=== PATIENT | male | born 1965 | race Caucasian/White ===

== ENCOUNTER → 2018-10-24 09:33 | Outpatient (CLI) | payer OTHER, SELFPAY ==
--- NOTE | 2018-10-24 09:39 | RAD_ITS ---
STUDY: X-RAY - RIGHT WRIST REASON FOR EXAM: Male, 52 years old. Wrist pain TECHNIQUE: 3 view(s) of the wrist were obtained. COMPARISON: None. FINDINGS: Normal visualized distal radius and ulna. There is degenerative arthrosis of the radiocarpal articulation. Normal distal radioulnar articulation. There is a diminutive appearance to the proximal pole of the scaphoid bone with widening of the scapholunate interval suggestive of a chronic scaphoid fracture and avascular crosses the proximal pole. Normal carpal articulations. Normal carpometacarpal articulation of the thumb. Normal second through fifth carpometacarpal articulations. Normal visualized metacarpal bones. The soft tissue structures are unremarkable. 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 Electronically Signed: Edgard White MD at 9:59 EDT Tel , Service support ,
== END ==
PROVIDERS: Family Provider Family Medicine; PCP Family Medicine; Referring Provider Family Medicine; Visit Provider Family Medicine
DX: M25.531 Pain in right wrist (principal)
CPT/HCPCS: 73110

== ENCOUNTER → 2019-01-01 08:04 | Outpatient (CLI) | payer OTHER, SELFPAY ==
--- NOTE | 2019-01-01 08:42 | MRI_ITS ---
STUDY: MRI RIGHT HIP REASON FOR EXAM: Male, 53 years old. Right hip mass. TECHNIQUE: Standardized fat and water weighted pulse sequences were obtained in all 3 orthogonal planes. Following the intravenous administration of 20 cc Dotarem, T1 weighted axial and coronal sequences were performed. COMPARISON: None. FINDINGS: Marrow signal is normal. There is no fracture, bone contusion, or osteonecrosis. Normal hip joint without joint effusion or articular joint space narrowing. Normal acetabulum. Normal labrum. Normal femoral head. Normal femoral neck and intratrochanteric region. Normal gluteus minimus, medius and iliopsoas tendons and distal insertions. There is a partial tear of the right semimembranosus tendon at the ischial tuberosity insertion. There is no trochanteric, iliopsoas or iliopectineal bursitis. There is an 8.8 x 5.8 x 5.7 cm bilobed fluid collection associated with the tensor fascial mary and extending into the lateral subcutaneous tissues. The collection is slightly heterogeneous on T1 and T2-weighted imaging. There is no obvious enhancement following the administration of contrast. MRI/Lower Ext Joint Only W/WO Cont IMPRESSION: 1. Complex fluid collection lateral to the right tensor fascia mary. If there is a history of subacute trauma, degloving injury should be suspected. Organized hematoma is less likely. Cyst or cystic neoplasm is unlikely. 2. Partial tear of the right semimembranosus tendon. Electronically Signed: Ting Gallagher MD at 18:43 EDT Tel , Service support ,
== END ==
PROVIDERS: Family Provider Family Medicine; PCP Family Medicine; Referring Provider Orthopaedic Surgery; Visit Provider Orthopaedic Surgery
DX: M25.551 Pain in right hip (principal); D48.1 Neoplasm of uncertain behavior of connective and other soft tissue
CPT/HCPCS: 73723; A9575

== ENCOUNTER 2019-05-04 08:30 | Outpatient (RCR) | payer OTHER, SELFPAY ==
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
== END 2019-05-04 19:00 | disposition home or self-care (01) ==
LOC: OT 08:30
PROVIDERS: PCP Family Medicine; Referring Provider Orthopaedic Surgery; Visit Provider Orthopaedic Surgery
DX: M12.531 Traumatic arthropathy, right wrist (principal); M25.531 Pain in right wrist
CPT/HCPCS: 97035; 97110; 97140; 97166; 97530

== ENCOUNTER → 2019-07-23 15:07 | Outpatient (CLI) | payer OTHER, SELFPAY ==
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
== END ==
PROVIDERS: PCP Family Medicine; Referring Provider Family Medicine; Visit Provider Family Medicine
DX: M79.672 Pain in left foot (principal)
CPT/HCPCS: 73630

== ENCOUNTER 2021-04-23 13:53 | Outpatient (CLI) | payer OTHER, SELFPAY ==
--- NOTE | 2021-04-23 14:11 | VDLE_ITS ---
Reason For Study: Pain in rt leg RIGHT GSV is normal. CFV is compressible, spontaneous, phasic, competent and demonstrates normal augmentation. FV is compressible, spontaneous, phasic, competent and demonstrates normal augmentation. POP V is compressible, spontaneous, phasic, competent and demonstrates normal augmentation. T/P Trunk is compressible. PTV is compressible. RT PerV is compressible. Acute deep vein thrombosis is noted in the right GastrocV and SoleusV. Procedure This is a venous duplex using B-mode, color flow and spectral Doppler. Exam performed in department. A preliminary report was called and/or faxed to RN in office. VL/Venous Duplex US, Unilateral Interpretation Summary Acute deep venous thrombosis right gastrocnemius and soleus veins. Patent compressible right great saphenous vein Ordering Physician: Torres Recio Referring Physician: Yoel Chavez MD Performed By: Layla Montenegro RVT
== END 2021-04-23 23:59 | disposition short-term general hospital (02) ==
PROVIDERS: PCP Family Medicine; Referring Provider Orthopaedic Surgery; Visit Provider Orthopaedic Surgery
DX: I82.461 Acute embolism and thrombosis of right calf muscular vein (principal)
CPT/HCPCS: 93971

== ENCOUNTER 2021-04-24 18:09 | Emergency (ER) | payer OTHER, SELFPAY ==
[2021-04-24 18:10] VITALS: BP 173/95; PULSE 88; RESP 16; TEMP 36.2; O2SAT 95; BMI 39.3
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
[2021-04-24 19:06] VITALS: BP 189/90; PULSE 86; RESP 15; O2SAT 98
== END 2021-04-24 19:07 | disposition home or self-care (01) ==
LOC: ED 18:45
PROVIDERS: Emergency Provider Emergency Medicine; PCP Family Medicine; Visit Provider Emergency Medicine
DX: I82.401 Acute embolism and thrombosis of unspecified deep veins of right lower extremity (principal); M79.661 Pain in right lower leg; Z79.01 Long term (current) use of anticoagulants; Z79.899 Other long term (current) drug therapy
CPT/HCPCS: 99282

== ENCOUNTER 2021-05-19 11:50 | Outpatient (CLI) | payer OTHER, SELFPAY ==
--- NOTE | 2021-05-19 12:25 | CT_ITS ---
STUDY: CT PELVIS WITH CONTRAST REASON FOR EXAM: Male, 55 years old. RIGHT GROIN PAIN RADIATION DOSAGE (If Supplied By Facility): CTDIvol = ( 28.21 ) mGy, DLP = ( 1391.79 ) mGycm TECHNIQUE: Transaxial imaging of the pelvis was performed without oral contrast. IV 100mL Isovue-300 was administered intravenously. Individualized dose optimization techniques were used for this CT. COMPARISON: None. FINDINGS: Normal urinary bladder. Normal visualized small intestine. Normal visualized colon. There is no pelvic fluid. There is no pelvic lymphadenopathy or mass lesion. Normal visualized pelvic arteries. Normal abdominal wall. There is a 1.3 cm sclerotic focus in the right posterior aspect of the L3 vertebrae. There is evidence of a grade 1 spondylolisthesis of L4 on L5 with disc space narrowing and spondylolysis of the pars interarticularis of the L4 vertebrae. CT/Pelvis WITH IV Contrast IMPRESSION: 1.3 sinus collateral focus in the right posterior aspect of the L3 vertebrae. Grade 1 anterolisthesis of L4 on L5 with spondylolysis of the pars interarticularis of the L4 vertebrae with disc space narrowing and spondylosis. Electronically Signed: Davis Leonardo MD at 12:48 EST ,
== END 2021-05-19 23:59 | disposition home or self-care (01) ==
PROVIDERS: PCP Family Medicine; Visit Provider Family Medicine
DX: K40.90 Unilateral inguinal hernia, without obstruction or gangrene, not specified as recurrent (principal)
CPT/HCPCS: 72193; Q9967

== ENCOUNTER 2021-05-20 10:54 | Emergency (ER) | payer OTHER, SELFPAY ==
[2021-05-20 10:55] VITALS: BP 170/104; PULSE 60; RESP 24; TEMP 36.8; O2SAT 100; BMI 40.0
--- NOTE | 2021-05-20 10:57 | ED.RN ---
PT HAD TO BE ASSISTED OUT OF THE FAMILY VEHICLE. PT WANTED TO BE LIFTED OUT OF THE VEHICLE ONTO A BED. PT RELUCTANTLY GOT INTO A WHEELCHAIR. ONCE INSIDE TRIAGE PT STATES IF I GET ANOTHER PAIN I AM GOING TO THROW MYSELF ON THE FLOOR ON PURPOSE
--- NOTE | 2021-05-20 11:16 | US_ITS ---
STUDY: SCROTUM ULTRASOUND REASON FOR EXAM: Male, 55 years old. Right testicular pain. History of recent inferior vena cava filter placement. TECHNIQUE: Ultrasound evaluation of the scrotum was performed with color Doppler and static brown-scale imaging. COMPARISON: None. FINDINGS: RIGHT TESTICLE INTRATESTICULAR: There is a normal size of the right testicle. The right testicle measures 5 cm x 3.1 cm x 2.2 cm. There is a homogenous echotexture. There is normal arterial and normal venous vascularity. There is no demonstrated right testicular mass or cyst. EXTRATESTICULAR: The epididymis is normal in size. The epididymis head measures 0.7 cm x 1 cm x 1.4 cm. There is normal vascularity of the epididymis. There is no demonstrated epididymal cystic structure. There is a small hydrocele. There is no demonstrated varicocele. There is no demonstrated extratesticular mass or cyst. LEFT TESTICLE INTRATESTICULAR: There is a normal size of the left testicle. The left testicle measures 4.7 cm x 3.1 cm x 2.2 cm. There is a homogenous echotexture. There is normal arterial and normal venous vascularity. There is no demonstrated left testicular mass or cyst. EXTRATESTICULAR: The epididymis is normal in size. The epididymis head measures 1.3 cm x 1.4 cm x 1.2 cm. There is normal vascularity of the epididymis. There is no demonstrated epididymal cystic structure. There is a small hydrocele. There is no demonstrated varicocele. There is no demonstrated extratesticular mass or cyst. US/Testicular with Arterial Flow IMPRESSION: Small bilateral hydroceles. Electronically Signed: Davis Leonardo MD at 13:31 EST ,
--- NOTE | 2021-05-20 11:17 | CT_ITS ---
STUDY: CT ABDOMEN AND PELVIS WITH CONTRAST REASON FOR EXAM: Male, 55 years old. Right testicular and abdominal pain. RADIATION DOSAGE (If Supplied By Facility): CTDIvol = ( 20.55 ) mGy, DLP = ( 1830.41 ) mGycm TECHNIQUE: Transaxial images were obtained from the dome of the diaphragm to the symphysis pubis without oral contrast. IV 100mL Isovue-300 was administered. Sagittal and coronal images were reconstructed. Individualized dose optimization techniques were used for this CT. COMPARISON: Comparison is made with prior CT scan of the pelvis dated 05/19/2011 FINDINGS: Tiny calcified granuloma in the left lower lobe. The visualized portions of the heart are within normal limits. There is decreased attenuation of the liver consistent with steatosis. Low-level density is seen along the dependent portion of the gallbladder lumen suggestive of either sludge or tiny gallstones. Normal spleen. Normal pancreas. Normal bilateral adrenal glands. Normal right kidney. Normal left kidney. Normal visualized stomach. Normal small intestine. Normal colon. The appendix is visualized and appears normal. Normal abdominal aorta. There is an IVC filter in place. Normal retroperitoneum. Normal urinary bladder. There is a left-sided inguinal hernia containing adipose tissue. Stable 1.3 cm sclerotic focus in the posterior aspect of the L3 vertebrae on the right side. Grade 1 anterior listhesis of L4 on L5 with spondylolysis of the pars interarticularis of the L5 vertebrae. CT/Abdomen/Pelvis W IV Cont ONLY IMPRESSION: Diffuse fatty infiltration of the liver. Findings suggestive of tiny gallstones versus sludge in the gallbladder lumen. Small left inguinal hernia containing fat. Electronically Signed: Davis Leonardo MD at 13:30 EST ,
[2021-05-20 12:05] LABS: Absolute Lymphocyte Count 1.43 X10^3/uL (0.83-4.51); Absolute Neutrophil Count 5.7 X10^3/uL (2.0-7.7); Basophil# 0.05 X10^3/uL; Basophil% 0.6 % (0-1); Eosinophil# 0.09 X10^3/uL; Eosinophils% 1.1 % (0-5); Hematocrit 47.2 % (40-54); Lymphocyte # 1.43 X10^3/ul (0.83-4.51); Lymphocyte % 17.7 % (19-41); Mean Corp Hgb Conc 33.9 g/dL (32-36); Mean Corpuscular Hgb 29.1 pg (27.0-32.0); Mean Platelet Vol. 10.8 fl (6.2-12.0); Monocyte# 0.75 X10^3/uL; Monocyte% 9.3 % (0-10); NRBC Flagged by Analyzer 0 % (0-5); Neutrophil # 5.73 X10^3/uL (2.7-7.7); Neutrophil % 71.2 % (47-70); Platelet Count 202 K/mm3 (150-450); RBC Distribution Width SD 40.2 fl (35.1-43.9); Red Blood Count 5.49 M/mm3 (4.6-6.2); White Blood Count 8.1 K/mm3 (4.4-11.0)
[2021-05-20 12:19] LABS: ALB/GLOB Ratio 0.9 RATIO (0.9-2.4); AST(SGOT) 20 U/L (15-37); Alanine Aminotransfer ALT/SGPT 41 U/L (16-61); Albumin, Serum 3.6 g/dL (3.2-5.0); Alkaline Phosphatase 87 U/L (45-117); Anion Gap 5 (5-15); BUN 15 mg/dL (7-18); BUN/Creat Ratio 22.1 RATIO (10-20); Chloride 104 mmol/L (98-107); Creatinine, Serum 0.68 mg/dL (0.70-1.30); EST Glomerular Filtration Rate 129 mL/min (>60); Est Glom Filt Rate - Afr Amer 156 mL/min (>60); Estimated Creatinine Clearance 136.31 ml/min; Globulin 4.1 g/dL (2.2-4.2); Glucose 105 mg/dL (74-106); Potassium 3.9 mmol/L (3.5-5.1); Protein, Total 7.7 g/dL (6.4-8.2); Sodium Level 138 mmol/L (136-145)
--- NOTE | 2021-05-20 12:50 | EDS_ITS ---
HPI History of Present Illness Chief Complaint: Abd Pain Informant: patient and spouse/S.O. Narrative Narrative: 55-year-old male presenting to the emergency department with chief complaint of right testicular pain. Patient states that he has been working towards a knee replacement on the right leg. He recently injured the right knee and subsequently developed a DVT and was placed on Eliquis. He then underwent an IVC filter placement by vascular surgery in [place]. He states that he has been having a pain in the suprapubic region extending down into the right testicle. Now he feels it is most like it in the right testicle that radiates into the right thigh. He also notes that he is on doxycycline for possibly infected bursa and taking hydrocodone. He notes no significant dysuria. No fevers. He underwent a pelvis CT with IV contrast yesterday that was essentially negative. He was supposed to have a pelvic ultrasound done today through his vascular surgeon but because of the pain came to emergency. Had blood work done on Tuesday which he brought with him. [facility] Medical History DVT (deep venous thrombosis) Non-smoker Seizures Home Medications apixaban [Eliquis DVT-PE Treat 30D Start] 5 mg PO BID #74 tab 04/24/21 [Rx Last Taken Unknown] hydrocodone-acetaminophen 1 tab PO Q4H PRN 04/24/21 [History Last Taken Unknown] diazepam 5 mg PO Q8 PRN #15 tab 05/20/21 [Rx Last Taken Unknown] doxycycline hyclate 100 mg PO BID 05/20/21 [History Last Taken Unknown] oxycodone 10 mg PO Q8H PRN 5 Days #15 tab 05/20/21 [Rx Last Taken Unknown] Allergy/AdvReac Type Severity Reaction Status Date / Time No Known Allergies Allergy Verified 04/24/21 18:09 Surgical History History of arthroscopy of right knee History of carpal tunnel release History of rotator cuff surgery Social History Smoking Status: Never smoker ROS ROS ED Constitutional Constitutional ED: Denies chills, fever(s) or weight loss Eyes Eyes: Denies change in vision or diplopia ENT ENT ED: Denies ear pain, rhinorrhea or sore throat Cardiovascular Cardiovascular: Denies chest pain, orthopnea, palpitations or racing heartbeat Respiratory/Chest Respiratory/Chest: Denies cough, dyspnea or orthopnea Gastrointestinal Gastrointestinal: Reports abdominal pain; Denies diarrhea, nausea or vomiting Genitourinary Genitourinary ED: Reports other Details: Right testicular pain ; Denies dysuria, hematuria or urinary frequency Musculoskeletal Musculoskeletal: Reports other Details: Right leg knee pain ; Denies arthralgias or myalgias Integumentary Reports other; Denies abscess or rash Neurologic Neurologic: Denies headache(s) or weakness Psychiatric Psychiatric: Denies anxiety, depression, suicidal ideation or suicidal thoughts Endocrine Endocrinology: Denies polydipsia, polyphagia or polyuria Allergic/Immunologic Allergic/Immunologic ED: Denies mouth swelling, tongue swelling or urticaria EXAM Physical Exam Const Vital Signs: 05/20/21 10:55 Temperature 98.3 F Temperature Source Temporal Pulse Rate 60 Respiratory Rate 24 H Blood Pressure 170/104 H Blood Pressure Mean 126 Pulse Ox 100 Oxygen Delivery Method Room Air Positive well nourished, well developed and obese General Appearance ED: well developed Nutritional Appearance: obese HEENT Reports normocephalic, head/scalp atraumatic, TM's clear and moist mucous membranes Negative for trauma Tympanic Membrane ED: Yes TM's clear Eyes PERRL and EOMs intact bilaterally Neck no lymphadenopathy, supple and no JVD Resp normal respiratory effort and clear to auscultation bilaterally Cardio regular rate, regular rhythm and no murmurs GI normal to inspection, nondistended, normoactive bowel sounds and non-tender Palpation: soft Narrative: Bilaterally the testicles appear normal and nontender. There is no drainage from the meatus. No rash. No perineal swelling or erythema. Back/Spine no CVA tenderness and normal ROM Extremity Extremity Narrative: Right leg is mildly swollen when compared to the left. The IVC insertion site appears without complication. General Extremety ED: Negative for edema General Extremity: Negative for edema Neuro oriented x3 and CN's II-XII intact bilaterally Sensorium / Orientation: alert Motor Exam: strength 5/5 throughout Psych mental status grossly normal Mood & Affect: Negative for depressed or tearful Skin no rashes or lesions noted and no wounds MDM MDM MDM Narrative Medical decision making narrative: Basic blood work is normal. Urinalysis is normal. CT of the abdomen pelvis with IV contrast does not demonstrate anything to explain the patient's pain. Ultrasound of the testicles are normal. I do not see an obvious cause for the patient's pain. I do note that he has grade 1 anterolisthesis of L4 on L5. However anatomically he should be having problems of the right testicle with S2/3 and should not radiate to the thigh. I do not have a great explanation for his pain. We will change him to for some Valium and some oxycodone. I did contact his primary care doctor to inform them of the above work-up. Lab Data Attestation: I reviewed the patient's lab results. Labs: Laboratory Results - last 24 hr 05/20/21 05/20/21 05/20/21 11:55 11:55 13:40 WBC 8.1 RBC 5.49 Hgb 16.0 Hct 47.2 MCV 86.0 MCH 29.1 MCHC 33.9 RDW Std Deviation 40.2 RDW Coeff of Pro 13.0 Plt Count 202 MPV 10.8 Immature Gran % (Auto) 0.100 Neut % (Auto) 71.2 H Lymph % (Auto) 17.7 L [place] % (Auto) 9.3 Eos % (Auto) 1.1 Baso % (Auto) 0.6 Absolute Neuts (auto) 5.7 Absolute Lymphs (auto) 1.43 Nucleated RBC % 0 Sodium 138 Potassium 3.9 Chloride 104 Carbon Dioxide 29.0 Anion Gap 5 BUN 15 Creatinine 0.68 L Estim Creat Clear Calc 136.31 Est GFR (MDRD) Af Amer 156 Est GFR (MDRD) Non-Af 129 BUN/Creatinine Ratio 22.1 H Glucose 105 Calcium 9.0 Total Bilirubin 0.50 AST 20 ALT 41 Alkaline Phosphatase 87 Total Protein 7.7 Albumin 3.6 Globulin 4.1 Albumin/Globulin Ratio 0.9 Urine Color Yellow Urine Clarity Clear Urine pH 7.0 Ur Specific [place] 1.010 Urine Protein Negative Urine Glucose (UA) Normal Urine Ketones Negative Urine Occult Blood Negative Urine Nitrite Negative Urine Bilirubin Negative Urine Urobilinogen Normal Ur Leukocyte Esterase Negative Urine RBC 0 SEEN Urine WBC 0 SEEN Ur Squamous Epith Cells 0 SEEN Urine Bacteria 0 SEEN Urine Mucus RARE Radiography Diagnostic Testing: Clinical Impression(s) from Imaging Studies Testicular Ultrasound 05/20/21 11:16 IMPRESSION: Small bilateral hydroceles. Electronically Signed: Davis Leonardo MD at 13:31 EST , Abdomen/Pelvis CT 05/20/21 11:17 IMPRESSION: Diffuse fatty infiltration of the liver. Findings suggestive of tiny gallstones versus sludge in the gallbladder lumen. Small left inguinal hernia containing fat. Electronically Signed: Davis Leonardo MD at 13:30 EST , Discharge Plan Triage Chief Complaint: Abd Pain ED Provider: Fox Lockwood Dx/Rx/DC Orders Clinical Impression: Testicular pain, right, Pain in right leg, Chronic anticoagulation, Back pain Instructions: ED Testicular Pain, Unclear Cause Prescriptions: New oxycodone 10 mg tablet 10 mg PO Q8H PRN (Reason: pain) 5 Days Qty: 15 RF: 0 diazepam [diazepam] 5 MG tablet 5 mg PO Q8 PRN (Reason: Muscle Spasm) Qty: 15 RF: 0 No Action Eliquis DVT-PE Treat 30D Start 5 mg (74 tabs) tablets,dose pack 5 mg PO BID Qty: 74 RF: 0 hydrocodone-acetaminophen 5-325 mg Tablet 1 tab PO Q4H PRN (Reason: Pain) RF: 0 doxycycline hyclate 100 mg capsule 100 mg PO BID RF: 0 Primary Care Provider: Daquan Chavez Referrals: Daquan Chavez MD [Primary Care Provider] - As soon as possible Disposition Disposition: Home, Self Care
[2021-05-20 13:44] LABS: Bacteria 0 SEEN /hpf (None Seen); Red Blood Cells-Urine 0 SEEN /hpf (0-5); Squamous Epithelial Cells - UA 0 SEEN /hpf (0-5); White Blood Cells 0 SEEN /hpf (0-5)
[2021-05-20 13:45] LABS: Color, Urine Yellow (Yellow); Glucose, Dipstick Normal (Normal); Ketone-Dipstick Negative (Negative); Leukocyte Esterase-Dipstick Negative /ul (Negative); Nitrite-Dipstick Negative (Negative); Occult Blood-Urine Negative /ul (Negative); Protein-Dipstick Negative (Negative); Urine Bilirubin Dipstick Negative (Negative); Urine Clarity Clear (Clear); Urine Urobilinogen Normal (Normal)
[2021-05-20 13:55] LABS: Mucous, Urine RARE /hpf (<or=2+)
[2021-05-20 14:33] VITALS: BP 164/87; PULSE 63; RESP 14
== END 2021-05-20 14:33 | disposition home or self-care (01) ==
PROVIDERS: Emergency Provider Emergency Medicine; PCP Family Medicine; Visit Provider Emergency Medicine
DX: N50.811 Right testicular pain (principal); Z68.41 Body mass index [BMI] 40.0-44.9, adult; M43.16 Spondylolisthesis, lumbar region; M79.604 Pain in right leg; E66.9 Obesity, unspecified; Z79.01 Long term (current) use of anticoagulants; Z86.718 Personal history of other venous thrombosis and embolism
CPT/HCPCS: 74177; 76870; 80053; 81001; 85025; 93976; 99283; Q9967; A4216

== ENCOUNTER 2021-06-08 11:31 | Outpatient (CLI) | payer OTHER, SELFPAY ==
--- NOTE | 2021-06-08 11:39 | RAD_ITS ---
History: PAIN Right ankle 3 views: Findings. No acute fracture or dislocation. No joint space abnormality. Soft tissue swelling noted. No radiopaque foreign body. IMPRESSION: Soft tisuue swelling. at 1447 Reported and signed by: Garret Aburto MD Electronically Signed: Garret Aburto MD at 14:45 EDT , RAD/Ankle min 3 Views
--- NOTE | 2021-06-08 11:39 | RAD_ITS ---
EXAM: XR RIGHT FOOT COMPLETE, 3 OR MORE VIEWS : 1965 CLINICAL INDICATION: ANKLE PAIN TECHNIQUE: Frontal, lateral and oblique views of the right foot. This report was created using [employer] report generation technology. COMPARISON: None. FINDINGS: BONES/JOINTS: Unremarkable. No acute fracture. No subluxation. Normal alignment. Preservation of the joint space. No sclerotic or destructive changes observed. SOFT TISSUES: Unremarkable. No soft tissue swelling or gas. No radiopaque foreign body. RAD/Foot min 3 Views IMPRESSION: No acute abnormality. at 1446 Reported and signed by: Garret Aburto MD Electronically Signed: Garret Aburot MD at 14:45 EDT ,
[2021-06-08 15:55] LABS: Absolute Lymphocyte Count 1.48 X10^3/uL (0.83-4.51); Absolute Neutrophil Count 4.8 X10^3/uL (2.0-7.7); Basophil# 0.07 X10^3/uL; Eosinophil# 0.11 X10^3/uL; Eosinophils% 1.5 % (0-5); Hematocrit 49.1 % (40-54); Hemoglobin 15.6 g/dL (13.0-16.5); International Normalized Ratio 1.2; Lymphocyte # 1.48 X10^3/ul (0.83-4.51); Lymphocyte % 20.4 % (19-41); Mean Corp Hgb Conc 31.8 g/dL (32-36); Mean Corpuscular Hgb 27.8 pg (27.0-32.0); Mean Corpuscular Volume 87.4 fL (80-94); Mean Platelet Vol. 11.3 fl (6.2-12.0); Monocyte# 0.77 X10^3/uL; Monocyte% 10.6 % (0-10); NRBC Flagged by Analyzer 0 % (0-5); Neutrophil # 4.82 X10^3/uL (2.7-7.7); Neutrophil % 66.2 % (47-70); Platelet Count 226 K/mm3 (150-450); Prothrombin Time (Protime)PT. 14.2 SECONDS (11.7-14.9); RBC Distribution Width CV 13.5 % (11.6-14.6); RBC Distribution Width SD 42.6 fl (35.1-43.9); Red Blood Count 5.62 M/mm3 (4.6-6.2); White Blood Count 7.3 K/mm3 (4.4-11.0)
[2021-06-08 15:56] LABS: Partial Thromboplast Time 34.5 Seconds (24.1-36.2)
[2021-06-08 16:04] LABS: Erythrocyte Sedimentation Rate 25 mm/hr (0-20)
[2021-06-08 16:11] LABS: Anion Gap 5 (5-15); BUN 12 mg/dL (7-18); BUN/Creat Ratio 14.3 RATIO (10-20); Calcium,Total 9.4 mg/dL (8.5-10.1); Chloride 104 mmol/L (98-107); Creatinine, Serum 0.84 mg/dL (0.70-1.30); EST Glomerular Filtration Rate 101 mL/min (>60); Est Glom Filt Rate - Afr Amer 123 mL/min (>60); Glucose 112 mg/dL (74-106); Potassium 3.9 mmol/L (3.5-5.1); Sodium Level 138 mmol/L (136-145); Uric Acid 7.9 mg/dL (3.5-7.2)
== END 2021-06-08 23:59 | disposition home or self-care (01) ==
PROVIDERS: PCP Family Medicine; Referring Provider Family Medicine; Visit Provider Family Medicine
DX: Z01.812 Encounter for preprocedural laboratory examination (principal); M25.571 Pain in right ankle and joints of right foot
CPT/HCPCS: 36415; 73610; 73630; 80048; 84550; 85025; 85610; 85652; 85730; 86140; 87086

== ENCOUNTER 2021-06-12 11:56 | Outpatient (CLI) | payer OTHER, SELFPAY ==
--- NOTE | 2021-06-12 12:02 | RAD_ITS ---
STUDY: X-RAY - LEFT FOOT CLINICAL: Male, 55 years old. Pain. TECHNIQUE: 3 view(s) of the foot. COMPARISON: 07/23/2019. FINDINGS: Stable superior calcaneal spur. Moderate arthrosis of the midfoot. Stable ossicle projected over the navicular. Mild arthrosis of the midfoot unchanged. Moderate arthrosis of the MTP and IP joints with hammertoe deformities, unchanged. The soft tissue structures are unremarkable. RAD/Foot min 3 Views IMPRESSION: Stable calcaneal spur and osteoarthritic changes. No acute abnormality, chondrocalcinosis, erosive changes or periostitis. Electronically Signed: Yuri Gutierrez MD at 13:43 EDT ,
== END 2021-06-12 23:59 | disposition home or self-care (01) ==
LOC: MTRAD 11:58
PROVIDERS: PCP Family Medicine; Referring Provider Family Medicine; Visit Provider Family Medicine
DX: M77.32 Calcaneal spur, left foot (principal); M19.072 Primary osteoarthritis, left ankle and foot
CPT/HCPCS: 73630

== ENCOUNTER 2021-06-19 08:28 | Outpatient (CLI) | payer OTHER, SELFPAY ==
[2021-06-19 10:24] LABS: Absolute Lymphocyte Count 1.92 X10^3/uL (0.83-4.51); Absolute Neutrophil Count 1.7 X10^3/uL (2.0-7.7); Basophil# 0.07 X10^3/uL; Basophil% 1.6 % (0-1); Eosinophils% 4.5 % (0-5); Hemoglobin 14.4 g/dL (13.0-16.5); Lymphocyte # 1.92 X10^3/ul (0.83-4.51); Lymphocyte % 43.3 % (19-41); Mean Corp Hgb Conc 31.3 g/dL (32-36); Mean Corpuscular Hgb 27.7 pg (27.0-32.0); Mean Corpuscular Volume 88.6 fL (80-94); Mean Platelet Vol. 10.6 fl (6.2-12.0); Monocyte# 0.55 X10^3/uL; Monocyte% 12.4 % (0-10); NRBC Flagged by Analyzer 0 % (0-5); Neutrophil # 1.68 X10^3/uL (2.7-7.7); Platelet Count 221 K/mm3 (150-450); RBC Distribution Width CV 13.5 % (11.6-14.6); RBC Distribution Width SD 43.4 fl (35.1-43.9); Red Blood Count 5.19 M/mm3 (4.6-6.2); White Blood Count 4.4 K/mm3 (4.4-11.0)
[2021-06-19 10:27] LABS: Anion Gap 5 (5-15); BUN 12 mg/dL (7-18); BUN/Creat Ratio 16.7 RATIO (10-20); Calcium,Total 8.8 mg/dL (8.5-10.1); Chloride 108 mmol/L (98-107); Creatinine, Serum 0.72 mg/dL (0.70-1.30); EST Glomerular Filtration Rate 121 mL/min (>60); Est Glom Filt Rate - Afr Amer 147 mL/min (>60); Glucose 93 mg/dL (74-106); Potassium 3.8 mmol/L (3.5-5.1); Sodium Level 140 mmol/L (136-145)
== END 2021-06-19 23:59 | disposition home or self-care (01) ==
LOC: MFPLAB 08:29
PROVIDERS: PCP Family Medicine; Referring Provider Family Medicine; Visit Provider Family Medicine
DX: M10.9 Gout, unspecified (principal)
CPT/HCPCS: 36415; 80048; 85025

== ENCOUNTER 2021-07-06 11:22 | Outpatient (CLI) | payer OTHER, SELFPAY ==
[2021-07-06 11:28] LABS: Bacteria 0 SEEN /hpf (None Seen); Mucous, Urine 0 SEEN /hpf (<or=2+); Squamous Epithelial Cells - UA 0 SEEN /hpf (0-5); White Blood Cells 0 SEEN /hpf (0-5)
[2021-07-06 15:00] LABS: Absolute Lymphocyte Count 1.71 X10^3/uL (0.83-4.51); Absolute Neutrophil Count 3.4 X10^3/uL (2.0-7.7); Basophil# 0.08 X10^3/uL; Basophil% 1.3 % (0-1); Eosinophil# 0.21 X10^3/uL; Eosinophils% 3.5 % (0-5); Hematocrit 42.2 % (40-54); Hemoglobin 13.5 g/dL (13.0-16.5); Lymphocyte # 1.71 X10^3/ul (0.83-4.51); Lymphocyte % 28.4 % (19-41); Mean Corpuscular Hgb 28.1 pg (27.0-32.0); Mean Corpuscular Volume 87.9 fL (80-94); Mean Platelet Vol. 10.5 fl (6.2-12.0); Monocyte# 0.64 X10^3/uL; Monocyte% 10.6 % (0-10); NRBC Flagged by Analyzer 0 % (0-5); Neutrophil # 3.36 X10^3/uL (2.7-7.7); Neutrophil % 55.9 % (47-70); Platelet Count 292 K/mm3 (150-450); RBC Distribution Width CV 13.9 % (11.6-14.6); RBC Distribution Width SD 44.6 fl (35.1-43.9)
[2021-07-06 15:21] LABS: Color, Urine Yellow (Yellow); Glucose, Dipstick Normal (Normal); Ketone-Dipstick 5 mg/dl (Negative); Leukocyte Esterase-Dipstick 25 /ul (Negative); Nitrite-Dipstick Negative (Negative); Occult Blood-Urine 150 /ul (Negative); Protein-Dipstick 15 mg/dl (Negative); Specific Gravity, Urine 1.025 (1.002-1.030); Urine Bilirubin Dipstick Negative (Negative); Urine Clarity Clear (Clear); Urine Urobilinogen Normal (Normal)
[2021-07-06 15:39] LABS: ALB/GLOB Ratio 0.9 RATIO (0.9-2.4); AST(SGOT) 31 U/L (15-37); Alanine Aminotransfer ALT/SGPT 40 U/L (16-61); Albumin, Serum 3.7 g/dL (3.2-5.0); Alkaline Phosphatase 84 U/L (45-117); Anion Gap 6 (5-15); BUN 19 mg/dL (7-18); Calcium,Total 9.2 mg/dL (8.5-10.1); Chloride 105 mmol/L (98-107); Creatinine, Serum 0.79 mg/dL (0.70-1.30); EST Glomerular Filtration Rate 108 mL/min (>60); Est Glom Filt Rate - Afr Amer 131 mL/min (>60); Globulin 4.1 g/dL (2.2-4.2); Glucose 109 mg/dL (74-106); Protein, Total 7.8 g/dL (6.4-8.2); Sodium Level 137 mmol/L (136-145)
[2021-07-06 15:43] LABS: Hemoglobin A1c 5.8 % (3.8-5.6)
[2021-07-06 15:44] LABS: Calcium Oxalate Crystals Ur 2+ /hpf (<or=2+)
[2021-07-06 15:45] LABS: Red Blood Cells-Urine 10-25 SEEN /hpf (0-5)
== END 2021-07-06 23:59 | disposition home or self-care (01) ==
LOC: MTLAB 11:23
PROVIDERS: PCP Family Medicine; Referring Provider Family Medicine; Visit Provider Family Medicine
DX: R35.0 Frequency of micturition (principal)
CPT/HCPCS: 36415; 80053; 81001; 83036; 85025; 87086

== ENCOUNTER → 2021-07-27 | Outpatient (CLI) | payer OTHER, SELFPAY ==
[2021-07-27 18:03] LABS: Anion Gap 5 (5-15); BUN 18 mg/dL (7-18); Calcium,Total 8.8 mg/dL (8.5-10.1); Chloride 104 mmol/L (98-107); Creatinine, Serum 0.82 mg/dL (0.70-1.30); EST Glomerular Filtration Rate 104 mL/min (>60); Est Glom Filt Rate - Afr Amer 126 mL/min (>60); Glucose 86 mg/dL (74-106); Potassium 4.3 mmol/L (3.5-5.1); Sodium Level 137 mmol/L (136-145); Uric Acid 7.7 mg/dL (3.5-7.2)
== END | disposition home or self-care (01) ==
LOC: MFPLAB 16:10
PROVIDERS: PCP Family Medicine; Visit Provider Family Medicine
DX: M10.9 Gout, unspecified (principal)
CPT/HCPCS: 36415; 80048; 84550

== ENCOUNTER 2021-08-17 09:30 | Outpatient (RCR) | payer OTHER, SELFPAY ==
--- NOTE | 2021-06-26 17:25 | HP.PTEVAL_ITS ---
Patient's Visit Information DESIRAE EDUARDO is a 55 year old M referred to Physical Therapy by Dr. Torres Recio, DO with a diagnosis of UNILATERAL PRIMARY OSTEORTHRITIS ,RIGHT,PAIN LEFT ,COMPLEX TEAR MENISCUS. Date of Evaluation: 06/26/21 Physical Therapist: Lux Payton, PT, Cert MDT, OCS - Visit Plan Frequency: 2-3x /Week Duration: 6 Weeks Plan: PT INTERVETIONS ROM/FLEXABLITY RIGHT KNEE ,PRES QUADS/HAMS/HIP ,NUSTEP/BIKE ,FUNCTIONAL STRENGTH,GAIT AND BALANCE TRAINING AND CP VASO NEEDED - Subjective This 55 y/o male presents physical therapy with right TKR done by DR Recio at [facility] done ON 07/25/21 . Patient d/c with FWW . Patient developed DVT and had nerve block for surgery. Patient has had knee pain many years had arthroscopy many years. Most recently ~ 6 months ago pain worse with progressively DJD and further meniscus . Patient denies paresthesia/tingling. Patient has difficulty with dressing with socks shoes and compression sleeve. Patient has difficulty with with daily function. Patient did have prior comorbties with blood pressure ,gout and DVT, RTC right. Patient lives in [facility] with handle. Bathroom tub/shower with toilet seat with hand rails, elevated toilet seat. Patient has difficulty with ADL's and function and RTW. Patient has difficulty with gait. Patient surgery affects QOL .MEDS: celebrex ,oxycodone ,gabapentin. SOCIAL: . VOCATION: [employer] - Pain Right Knee Pain Intensity (Out of 10): 3 Pain Intensity Range: 10 - Objective POSTURE: mild forward posture. GAIT: ambulates with cane today 2 point gait with decrease stance swing phase. NEURO: denies paresthesia/tingling. SKIN: silver bandage intact. BALANCE: FAIR+ with device. AROM: right 5-85 supine knee flexion. GIRTH PATELLA: 52.5 cm. GIRTH 6 SUPRAPATELLAR: 60.9 CM. MMT( peak force) : right quads 11.9 ,hamstrings 19.8 ,hip flexion 12.3 ,ankle 4/5. STAIRS: one step at time with rails - Balance/Special Test Scores Lower Extremity Functional Score: 21 WOMAC Total Score: 48 WOMAC Percentatge: 47.8300 - Goals Goal 1:: Patient to be I with HEP Goal Time Frame: 4-6 Weeks Goal 2:: Patient to normalize gait community distances and improve tug by < 9 seconds Goal Time Frame: 4-6 Weeks Goal 3:: Patient to improve AROM supine knee 0-115 degrees stairs alternating Goal Time Frame: 4-6 Weeks Goal 4:: Patient to improve peak force of quads/hams by 20 to improve gait. Goal Time Frame: 4-6 Weeks Goal 5:: Patient to improve WOMAC score by 10 points or > to improve function Goal Time Frame: 4-6 Weeks Goal 6:: Patient to improve LFES score by 10 points to improve QOL and function/gait Goal Time Frame: 4-6 Weeks - Rehabilitation Potential Physical Therapy Diagnosis: This patient underwent s/p TKR right with decrease ROM ,strength, impairs gait stairs and balance with some pain thus will benefit from skilled PT to address these impairments Rehabilitation Potential: Good - Anticipated Interventions Patient/Client Instruction: Educate patient on: Condition, Plan of Care For the Purpose of:: To decrease pain, To increase ROM, To improve muscle performance and motor function, To improve ability to perform ADL's, To increase tolerance to activity/condition/position, To improve ability of physical actions for home/community/work/leisure, To improve gait and locomotor functions, To improve health of tissue, To decrease soft tissue restriction, To increase flexibility/ROM, To improve endurance, To improve safety with gait Therapeutic Exercise to Include: Strength training, Endurance training, Balance training, Flexibilty training, Active ROM Comment: QUADS/HAMSTRINGS For the Purpose of:: To decrease pain, To increase ROM, To improve muscle performance and motor function, To improve ability to perform ADL's, To increase tolerance to activity/condition/position, To improve ability of physical actions for home/community/work/leisure, To improve gait and locomotor functions, To improve health of tissue, To decrease soft tissue restriction, To increase flexibility/ROM, To improve endurance, To improve balance Cryotherapy (ice pack, ice massage): Yes Vasopneumatic device: Yes For the Purpose of:: To decrease pain, To decrease swelling/inflammation, To increase ROM, To improve health of tissue, To decrease soft tissue restriction Thank you for the opportunity to evaluate your patient. For Medicare and Medicare HMO plans, please review the plan of care and approve it. It will need to be FAXED BACK to us at [phone] for Medicare purposes. For Medicare only, by signing this I certify the plan of care. Please let me know if there are questions or concerns regarding this plan of care. Physician Signature: Date:
--- NOTE | 2021-06-30 09:43 | HP.PTEVAL_ITS ---
Patient's Visit Information DESIRAE EDUARDO is a 55 year old M referred to Physical Therapy by Dr. Torres Recio, DO with a diagnosis of UNILATERAL PRIMARY OSTEORTHRITIS ,RIGHT KNEE PAIN ,COMPLEX TEAR MENISCUS. Date of Evaluation: 06/26/21 Physical Therapist: Lux Payton, PT, Cert MDT, OCS - Visit Plan Frequency: 2-3x /Week Duration: 6 Weeks Plan: PT INTERVETIONS ROM/FLEXABLITY RIGHT KNEE ,PRES QUADS/HAMS/HIP ,NUSTEP/BIKE ,FUNCTIONAL STRENGTH,GAIT AND BALANCE TRAINING AND CP VASO NEEDED - Subjective This 55 y/o male presents physical therapy with right TKR done by DR Recio at [facility] done ON 07/25/21 . Patient d/c with FWW . Patient developed DVT and had nerve block for surgery. Patient has had knee pain many years had arthroscopy many years. Most recently ~ 6 months ago pain worse with progressively DJD and further meniscus . Patient denies paresthesia/tingling. Patient has difficulty with dressing with socks shoes and compression sleeve. Patient has difficulty with with daily function. Patient did have prior comorbties with blood pressure ,gout and DVT, RTC right. Patient lives in [facility] with handle. Bathroom tub/shower with toilet seat with hand rails, elevated toilet seat. Patient has difficulty with ADL's and function and RTW. Patient has difficulty with gait. Patient surgery affects QOL .MEDS: celebrex ,oxycodone ,gabapentin. SOCIAL: . VOCATION: [employer] - Pain Right Knee Pain Intensity (Out of 10): 3 Pain Intensity Range: 10 - Objective POSTURE: mild forward posture. GAIT: ambulates with cane today 2 point gait with decrease stance swing phase. NEURO: denies paresthesia/tingling. SKIN: silver bandage intact. BALANCE: FAIR+ with device. AROM: right 5-85 supine knee flexion. GIRTH PATELLA: 52.5 cm. GIRTH 6 SUPRAPATELLAR: 60.9 CM. MMT( peak force) : right quads 11.9 ,hamstrings 19.8 ,hip flexion 12.3 ,ankle 4/5. STAIRS: one step at time with rails - Balance/Special Test Scores Lower Extremity Functional Score: 21 WOMAC Total Score: 48 WOMAC Percentatge: 47.8300 - Goals Goal 1:: Patient to be I with HEP Goal Time Frame: 4-6 Weeks Goal 2:: Patient to normalize gait community distances and improve tug by < 9 seconds Goal Time Frame: 4-6 Weeks Goal 3:: Patient to improve AROM supine knee 0-115 degrees stairs alternating Goal Time Frame: 4-6 Weeks Goal 4:: Patient to improve peak force of quads/hams by 20 to improve gait. Goal Time Frame: 4-6 Weeks Goal 5:: Patient to improve WOMAC score by 10 points or > to improve function Goal Time Frame: 4-6 Weeks Goal 6:: Patient to improve LFES score by 10 points to improve QOL and function/gait Goal Time Frame: 4-6 Weeks - Rehabilitation Potential Physical Therapy Diagnosis: This patient underwent s/p TKR right with decrease ROM ,strength, impairs gait stairs and balance with some pain thus will benefit from skilled PT to address these impairments Rehabilitation Potential: Good - Anticipated Interventions Patient/Client Instruction: Educate patient on: Condition, Plan of Care For the Purpose of:: To decrease pain, To increase ROM, To improve muscle performance and motor function, To improve ability to perform ADL's, To increase tolerance to activity/condition/position, To improve ability of physical actions for home/community/work/leisure, To improve gait and locomotor functions, To improve health of tissue, To decrease soft tissue restriction, To increase flexibility/ROM, To improve endurance, To improve safety with gait Therapeutic Exercise to Include: Strength training, Endurance training, Balance training, Flexibilty training, Active ROM Comment: QUADS/HAMSTRINGS For the Purpose of:: To decrease pain, To increase ROM, To improve muscle performance and motor function, To improve ability to perform ADL's, To increase tolerance to activity/condition/position, To improve ability of physical actions for home/community/work/leisure, To improve gait and locomotor functions, To improve health of tissue, To decrease soft tissue restriction, To increase flexibility/ROM, To improve endurance, To improve balance Cryotherapy (ice pack, ice massage): Yes Vasopneumatic device: Yes For the Purpose of:: To decrease pain, To decrease swelling/inflammation, To increase ROM, To improve health of tissue, To decrease soft tissue restriction Thank you for the opportunity to evaluate your patient. For Medicare and Medicare HMO plans, please review the plan of care and approve it. It will need to be FAXED BACK to us at [phone] for Medicare purposes. For Medicare only, by signing this I certify the plan of care. Please let me know if there are questions or concerns regarding this plan of care. Physician Signature: Date:
--- NOTE | 2021-12-30 09:53 | HP.PTDCNRP_ITS ---
DESIRAE IVIS EDUARDO was seen in my office for initial evaluation on 06/26/21. The following Plan of Care was established for this patient: Initial Frequency: 2-3x /Week Initial Duration: 6 Weeks Patient/Client Instruction: Educate patient on: Condition, Plan of Care For the Purpose of:: To decrease pain, To increase ROM, To improve muscle performance and motor function, To improve ability to perform ADL's, To increase tolerance to activity/condition/position, To improve ability of physical actions for home/community/work/leisure, To improve gait and locomotor functions, To improve health of tissue, To decrease soft tissue restriction, To increase flexibility/ROM, To improve endurance, To improve safety with gait Therapeutic Exercise to Include: Strength training, Endurance training, Balance training, Flexibilty training, Active ROM For the Purpose of:: To decrease pain, To increase ROM, To improve muscle performance and motor function, To improve ability to perform ADL's, To increase tolerance to activity/condition/position, To improve ability of physical actions for home/community/work/leisure, To improve gait and locomotor functions, To improve health of tissue, To decrease soft tissue restriction, To increase fle xibility/ROM, To improve endurance, To improve balance Cryotherapy (ice pack, ice massage): Yes Vasopneumatic device: Yes For the Purpose of:: To decrease pain, To decrease swelling/inflammation, To increase ROM, To improve health of tissue, To decrease soft tissue restriction This patient was last seen in our office . Pertinent comments regarding their Physical therapy will appear below: Patient seen for PT for TKR doing well thus d/c At this point I will be discontinuing this patient from physical therapy. I would be happy to see this patient again in the future if found appropriate by the physician. Thank you! Lux Payton, PT, Cert MDT, OCS Balance/Gait/Functional tests - Balance/Special Test Scores Lower Extremity Functional Score: 60 WOMAC Total Score: 48 WOMAC Percentage: 47.8300
== END 2021-08-17 19:00 | disposition home or self-care (01) ==
LOC: PT 09:30
PROVIDERS: PCP Family Medicine; Referring Provider Orthopaedic Surgery; Visit Provider Orthopaedic Surgery
DX: S83.271D Complex tear of lateral meniscus, current injury, right knee, subsequent encounter (principal); X58.XXXD Exposure to other specified factors, subsequent encounter; M17.11 Unilateral primary osteoarthritis, right knee; I82.401 Acute embolism and thrombosis of unspecified deep veins of right lower extremity; M70.51 Other bursitis of knee, right knee
CPT/HCPCS: 97014; 97016; 97110; 97140; 97162; G0283

== ENCOUNTER → 2021-09-08 | Outpatient (CLI) | payer OTHER, SELFPAY ==
[2021-09-08 16:26] LABS: Anion Gap 5 (5-15); BUN 18 mg/dL (7-18); Calcium,Total 9.2 mg/dL (8.5-10.1); Chloride 107 mmol/L (98-107); Creatinine, Serum 0.72 mg/dL (0.70-1.30); EST Glomerular Filtration Rate 120 mL/min (>60); Est Glom Filt Rate - Afr Amer 146 mL/min (>60); Glucose 111 mg/dL (74-106); Potassium 3.9 mmol/L (3.5-5.1); Sodium Level 140 mmol/L (136-145); Uric Acid 6.4 mg/dL (3.5-7.2)
== END | disposition home or self-care (01) ==
LOC: MFPLAB 12:15
PROVIDERS: PCP Family Medicine; Referring Provider Family Medicine; Visit Provider Family Medicine
DX: M10.9 Gout, unspecified (principal)
CPT/HCPCS: 36415; 80048; 84550

== ENCOUNTER → 2021-10-22 | Outpatient (CLI) | payer OTHER, SELFPAY ==
--- NOTE | 2021-10-22 09:54 | RAD_ITS ---
INDICATION: FOOT PAIN EXAMINATION/TECHNIQUE: X-RAY - RIGHT XR Foot Min 3 Views 3 VIEWS COMPARISON: 06/08/2021 right foot x-rays FINDINGS: SOFT TISSUES: No soft tissue swelling or gas. No radiopaque foreign body. BONES/JOINTS: No acute fracture or malalignment. Mild degenerative changes first metatarsal-phalangeal joint. No significant degenerative joint disease. No sclerotic or destructive changes observed. Note of a dorsal talar beak, unchanged. Prominent posterior trigonal process, 15 mm in diameter. RAD/Foot min 3 Views IMPRESSION: No fracture or malalignment. Mild degenerative changes first metatarsal-phalangeal joint. Electronically Signed: Torres Justice DO at 22:24 EDT ,
== END | disposition home or self-care (01) ==
LOC: MTRAD 09:53
PROVIDERS: PCP Family Medicine; Referring Provider Nurse Practitioner Family; Visit Provider Nurse Practitioner Family
DX: M19.071 Primary osteoarthritis, right ankle and foot (principal)
CPT/HCPCS: 73630

== ENCOUNTER → 2022-01-14 | Outpatient (CLI) | payer OTHER, SELFPAY ==
[2022-01-14 19:33] LABS: Anion Gap 8 (5-15); BUN 22 mg/dL (7-18); BUN/Creat Ratio 32.6 RATIO (10-20); Calcium,Total 9.1 mg/dL (8.5-10.1); Chloride 108 mmol/L (98-107); Cholesterol 190 mg/dL (200); Creatinine, Serum 0.68 mg/dL (0.70-1.30); EST Glomerular Filtration Rate 130 mL/min (>60); Est Glom Filt Rate - Afr Amer 157 mL/min (>60); Glucose 87 mg/dL (74-106); High Density Lipoprotein 44 mg/dL; PSA,Total - Annual Screen 0.42 ng/mL (0.00-4.00); Potassium 3.8 mmol/L (3.5-5.1); Sodium Level 139 mmol/L (136-145); Triglycerides 95 mg/dL; Uric Acid 5.4 mg/dL (3.5-7.2); Very Low Density Lipoprotein 19 mg/dL (5-40)
== END | disposition home or self-care (01) ==
LOC: MFPLAB 16:25
PROVIDERS: PCP Family Medicine; Referring Provider Family Medicine; Visit Provider Family Medicine
DX: Z13.1 Encounter for screening for diabetes mellitus (principal); Z13.220 Encounter for screening for lipoid disorders; Z12.5 Encounter for screening for malignant neoplasm of prostate; M10.9 Gout, unspecified
CPT/HCPCS: 36415; 80048; 80061; 84153; 84550; G0103

== ENCOUNTER 2022-03-11 09:15 | Day surgery (SDC) | payer OTHER, SELFPAY ==
[2022-03-11] VITALS (7 sets, daily range): BP systolic 92–129; BP diastolic 53–86; PULSE 48–60; RESP 16–17; TEMP 36.5–36.7; O2SAT 92–97; BMI 39.4
[2022-03-11] MEDS: Lactated Ringers 1,000 ML 15 ML IV (09:30)
--- NOTE | 2022-03-11 09:49 | HP.PCM_ITS ---
[facility] - General General Date of Admission: 03/11/22 Date of Service: 03/11/22 Chief Complaint: Screening colonoscopy HPI Tressa EDUARDO, is a 56 M who presents today for screening colonoscopy. He has a very of DVT and was on Eliquis. He had a IVC filter placed. He is not having any abdominal pain. He does not have any chest pain. He is not have any shortness of breath. He has no history of adenomatous polyps. No family histo ry of colon cancer. Overall he is in a good state of health. [facility] Medical History DVT (deep venous thrombosis) Gout Leg cramps Non-smoker Seizures Wears glasses Home Medications NK 03/09/22 [History Last Taken Unknown] Allergy/AdvReac Type Severity Reaction Status Date / Time No Known Allergies Allergy Verified 03/11/22 09:45 Surgical History History of arthroscopy of right knee History of carpal tunnel release History of hip surgery History of rotator cuff surgery History of surgery on wrist History of total right knee replacement Social History Smoking Status: Never smoker ROS Review of Systems ROS Unobtainable: other Constitutional Constitutional: Denies fatigue, fever(s), poor appetite, weight gain or weight loss ENT HEENT: Denies mouth lesions Cardiovascular Cardiovascular: Denies abdominal bloating, abdominal edema or abdominal pain Respiratory/Chest Respiratory/Chest: Denies change in mental status, change in phlegm color, chest congestion or chest tightness Gastrointestinal Gastrointestinal: Denies belching, bloating, change in bowel habits, change in stool character, chewing difficulty, coffee ground emesis, constipation, cramping, diarrhea, dyspepsia, dysphagia, early satiety, excessive flatus, fecal incontinence, heartburn, hematemesis, hematochezia, hemorrhoids, loose stools, melena, nausea, odynophagia, rectal bleeding, tenesmus, vomiting or weight changes Genitourinary Genitourinary: Denies abdominal discomfort, burning urination or itching Musculoskeletal Musculoskeletal: Reports as per HPI; Denies muscle weakness or myalgias Integumentary Integumentary: Denies jaundice Neurologic Neurologic: Denies lack of coordination or weakness Psychiatric Psychiatric: Denies confusion, depression, memory loss, mood swings, paranoia or suicidal ideation Endocrine Endocrinology: Denies systems reviewed and no addt'l complaints, except as documented Hematologic/Lymphatic Hematologic/Lymphatic: Denies anemia, easy bleeding, easy bruising or lymphadenopathy Allergic/Immunologic Allergic/Immunologic: Denies systems reviewed and no addt'l complaints, except as documented Physical Exam Const alert General Appearance: cooperative Orientation / Consciousness: oriented to person HEENT hearing grossly normal bilaterally Head and Scalp: normal to inspection Face and Sinus: face symmetric Nose: external nose normal Mouth: oral and palatal mucosa normal Eyes conjunctivae normal General Eye: normal appearance of both eyes Neck full ROM General: normal visual inspection Lymph Lymphatic: no lymphadenopathy noted Chest inspection of chest normal and palpation of chest normal Chest: symmetrical chest wall rise Resp normal respiratory effort Effort and Inspection: able to speak in complete sentences Cardio regular rate GI non-distended Percussion: normal to percussion Rectal Exam: deferred Neuro Speech: speech normal Gait (Neuro): normal gait Assessment & Plan Assessment/Plan (1) Encounter for screening for malignant neoplasm of colon: PLAN: He was explained alternatives, risk, benefits and sequelae not withstanding bleeding, infection, sepsis, perforation, need for emergent surgery . He will have an ASA of 2.
--- NOTE | 2022-03-11 11:03 | OP.COLON_ITS ---
Patient Name: Sebastian Geiger Procedure Date: 03/11/2022 10:24 AM Date of : 1965 Age: 56 Procedure: Colonoscopy Indications: Screening for colorectal malignant neoplasm Providers: Malik Baez DO Medicines: Monitored Anesthesia Care Patient Profile: This is a 56 year old male. Refer to note in patient chart for documentation of history and physical. Last Colonoscopy: none. The patient's first colonoscopy is today. Complications: No immediate complications. Procedure: Pre-Anesthesia Assessment: - Prior to the procedure, a History and Physical was performed, and patient medications and allergies were reviewed. The risks and benefits of the procedure and the sedation options and risks were discussed with the patient. All questions were answered and informed consent was obtained. Patient identification and proposed procedure were verified by the physician. Mental Status Examination: alert and oriented. Prophylactic Antibiotics: The patient does not require prophylactic antibiotics. Prior Anticoagulants: The patient has taken no previous anticoagulant or antiplatelet agents. After reviewing the risks and benefits, the patient was deemed in satisfactory condition to undergo the procedure. The anesthesia plan was to use monitored anesthesia care (MAC). Immediately prior to administration of medications, the patient was re-assessed for adequacy to receive sedatives. The heart rate, respiratory rate, oxygen saturations, blood pressure, adequacy of pulmonary ventilation, and response to care were monitored throughout the procedure. The physical status of the patient was re-assessed after the procedure. After I obtained informed consent, the scope was passed under direct vision. Throughout the procedure, the patient's blood pressure, pulse, and oxygen saturations were monitored continuously. The pediatric colonoscope was introduced through the anus and advanced to the cecum, identified by appendiceal orifice and ileocecal valve. The colonoscopy was performed without difficulty. The patient tolerated the procedure well. The quality of the bowel preparation was good. Scope In: 10:42:56 AM Scope Withdrawal Time 0 hours 7 minutes 19 seconds Scope Out: 10:55:26 AM Total Procedure Duration Time 0 hours 12 minutes 30 seconds Findings: The perianal and digital rectal examinations were normal. A few small-mouthed diverticula were found in the sigmoid colon and descending colon. The exam was otherwise normal throughout the examined colon. The retroflexed view of the distal rectum and anal verge was normal and showed no anal or rectal abnormalities. Impression: - Diverticulosis in the sigmoid colon and in the descending colon. - No specimens collected. Recommendation: - Discharge patient to home. - Resume previous diet. - Continue present medications. - Repeat colonoscopy in 10 years for screening purposes. Procedure Code(s): --- Professional --- G0121, Colorectal cancer screening; colonoscopy on individual not meeting criteria for high risk CPT copyright 2017 [employer] [place] [employer] [employer]. All rights reserved. The codes documented in this report are preliminary and upon hcc coders review may be revised to meet current compliance requirements. Malik Baez DO 03/11/2022 11:02:40 AM This report has been signed electronically. Number of Addenda: 0 Note Initiated On: 03/11/2022 10:24 AM
--- NOTE | 2022-03-11 11:04 | OP.CCLET_ITS ---
03/11/2022 Daquan Chavez [address] [place] [address] Re : Colonoscopy procedure for [facility]jo Dear Dr. Chavez This procedure was performed on February. My impressions and recommendations are as follows: Impressions : - Diverticulosis in the sigmoid colon and in the descending colon. - No specimens collected. Recommendations : - Discharge patient to home. - Resume previous diet. - Continue present medications. - Repeat colonoscopy in 10 years for screening purposes. My findings are described in the full procedure note, which is enclosed. If I can be of further assistance, please feel free to contact me at . Sincerely, Malik Baez, 03/11/2022 11:02:40 AM This report has been signed electronically.
== END 2022-03-11 12:16 | disposition home or self-care (01) ==
LOC: EN 09:17 → AC 09:17
PROVIDERS: PCP Family Medicine; Referring Provider Family Medicine; Visit Provider Internal Medicine Gastroenterology
PROC: 0DJD8ZZ Inspection of Lower Intestinal Tract, Via Natural or Artificial Opening Endoscopic (ICD-10-PCS; CPT 45378; principal; 2022-03-11 10:10)
DX: Z12.11 Encounter for screening for malignant neoplasm of colon (principal); K57.30 Diverticulosis of large intestine without perforation or abscess without bleeding; Z86.718 Personal history of other venous thrombosis and embolism
CPT/HCPCS: G0121; J7120; J2405

== ENCOUNTER 2022-03-17 08:00 | Outpatient (RCR) | payer OTHER, SELFPAY ==
--- NOTE | 2022-03-01 09:51 | HP.OTEVAL_ITS ---
Patient's Visit Information DESIRAE EDUARDO is a 56 year old M, referred to Occupational Therapy by Dr. Torres Recio DO, with a diagnosis of right wrist traumatic Arthropathy. Date of Evaluation: 02/25/22 Occupational Therapist: Estela Lr, OTR/L, CHT - Subjective This 56 year old male was seen OT eval with with dx of traumatic Arthropathy -. pt states he had a right proximal row carpectomy in 2018. Due to pain and limited ROM pt went in for reconstruction ( arthrotomy with radial styloidectomy on 01/05/22. Pt is currently 7 weeks and 2 days s/p. pt states he does not use a brace but will use with heavy tasks at hunting or heavy work. pt right handed. - ADLs Eating: Cut food Kitchen: Open jars, Open bottle caps, Lift gallon of milk, Lift saucepan Miscellaneous: Start car - Pain right wrist 2 Pain Intensity Range: 3, 6 - ROM Forearm: right/left WNL Wrist: right 25/30 left 70/60 ROM Comments: right UD 20* RD 10*. right UD 25 RD 20* - Strength Religious Ritual Slaughterer: right 45# left 95# Lateral Pinch: right 12# left 22# Tripod Pinch: right 10# left 20# - Sensation Sensation Comments: denies - Quick DASH-Disab of Arm,Shoulder& Hand Quick DASH Score: 25.0000 - Goals Goal:Daily scar massage when approriate: Yes Goal:ROM equal to unaffected hand: Yes Goal:Religious Ritual Slaughterer/Pinch strength at least 75% of unaffected hand: Yes Goal:Full use of affected hand in daily activities including: Yes - Rehabilitation General Assessment: pt demo with limited ROM and weakness following a arthrotomy with radial styloidectomy. pt would benefit from skilled OTR/L,CHT services 2-3x a week for 3-4 weeks to increase ROM, strength, ed. on dx and recovery along with HEP to return pt to PLOF. Today pt is 7 weeks and 2 days s/p and therapist ed. on AROM, scar mtg, and initiate PRE as tolerated. pt demo understanding and agree to POC. Rehabilitation Potential: Good - Anticipated Interventions A/AAROM/PROM, Strengthening, Education re Diagnosis, Home Program - Visit Plan TEXT: Thank you for the opportunity to evaluate your patient. For Medicare and Medicare HMO plans, please review the plan of care and approve it. It will need to be FAXED BACK to us at [phone] for Medicare purposes. Please let me know if there are questions or concerns regarding this plan of care. Physician Signature: Date:
--- NOTE | 2022-04-15 14:12 | HP.OTDCSUM ---
It has been my pleasure to treat DESIRAE EDUARDO under orders from Dr. Torres Recio DO, for the diagnosis of right wrist traumatic Arthropathy for a total of 7 visit(s). Please see the following information for a summary of their discharge status. % Improvement: 75 Objective/Function: right pharmacy data analyst strength 75# increase from 45#. right lateral pinch 16# increase from 12#. right tripod pinch 14# increase from 10#. right RD 13* Patient Goals: Regain Strength, Use Hand/Wrist/Arm Normally Again Goal:Daily scar massage when approriate: Yes Goal:ROM equal to unaffected hand: Yes Goal:Specialty Plant Supervisor/Pinch strength at least 75% of unaffected hand: Yes Goal:Full use of affected hand in daily activities including: Yes Plan: give HEP If there are questions or concerns regarding this patient's occupational therapy, please fell free to call me at [phone]. Thank you for the referral of this patient. Sincerely, Estela Lr, OTR/L, CHT
== END 2022-03-17 19:00 | disposition home or self-care (01) ==
LOC: OT 08:00
PROVIDERS: PCP Family Medicine; Referring Provider Orthopaedic Surgery; Visit Provider Orthopaedic Surgery
DX: M25.531 Pain in right wrist (principal)
CPT/HCPCS: 97110; 97140; 97166; 97530

== ENCOUNTER → 2022-09-14 | Outpatient (CLI) | payer SELFPAY ==
--- NOTE | 2022-09-14 15:48 | RAD_ITS ---
INDICATION: LEFT FOOT PAIN EXAMINATION/TECHNIQUE: X-RAY - XR Foot Min 3 Views COMPARISON: : No relevant prior comparison study available FINDINGS: Bones: There is normal bony alignment, trabecular pattern is normal. No fractures or focal lytic or sclerotic bony lesions. There are findings suspicious of a healed 5th metatarsal fracture. Joints: Joint spaces are maintained. Minimal osteophyte formation noted. No dislocation. No periarticular erosions. Soft tissues: Normal appearance of the soft tissues. No radiopaque foreign bodies noted. RAD/Foot min 3 Views IMPRESSION: 1. No fracture, subluxation, focal bony or joint space abnormality. 2. Healed 5th metatarsal fracture suspected. 3. Mild degenerative change. Electronically Signed: Edgard Cespedes MD at 19:49 EDT ,
== END | disposition home or self-care (01) ==
PROVIDERS: PCP Family Medicine; Referring Provider Family Medicine; Visit Provider Family Medicine
DX: M79.672 Pain in left foot (principal)
CPT/HCPCS: 73630

== ENCOUNTER → 2022-11-01 | Outpatient (CLI) | payer SELFPAY ==
[2022-11-01 12:15] LABS: Erythrocyte Sedimentation Rate 1 mm/hr (0-20)
[2022-11-01 12:17] LABS: Absolute Neutrophil Count 3.8 X10^3/uL (2.0-7.7); Basophil# 0.07 X10^3/uL; Basophil% 1.1 % (0-1); Eosinophil# 0.12 X10^3/uL; Eosinophils% 1.9 % (0-5); Hematocrit 51.1 % (40-54); Hemoglobin 16.4 g/dL (13.0-16.5); Mean Corp Hgb Conc 32.1 g/dL (32-36); Mean Corpuscular Hgb 27.7 pg (27.0-32.0); Mean Corpuscular Volume 86.3 fL (80-94); Mean Platelet Vol. 12.2 fl (6.2-12.0); Monocyte# 0.61 X10^3/uL; Monocyte% 9.9 % (0-10); NRBC Flagged by Analyzer 0 % (0-5); Neutrophil # 3.75 X10^3/uL (2.7-7.7); Neutrophil % 60.9 % (47-70); Platelet Count 154 K/mm3 (150-450); RBC Distribution Width CV 15.3 % (11.6-14.6); Red Blood Count 5.92 M/mm3 (4.6-6.2); White Blood Count 6.2 K/mm3 (4.4-11.0)
[2022-11-01 12:50] LABS: CRP < 2.90 mg/L (0.0-3.0)
== END | disposition home or self-care (01) ==
PROVIDERS: PCP Family Medicine; Referring Provider Specialist; Visit Provider Specialist
DX: T84.032A Mechanical loosening of internal right knee prosthetic joint, initial encounter (principal); X58.XXXA Exposure to other specified factors, initial encounter; Y79.2 Prosthetic and other implants, materials and accessory orthopedic devices associated with adverse incidents
CPT/HCPCS: 36415; 85025; 85652; 86140

== ENCOUNTER → 2024-07-11 | Outpatient (CLI) | payer BC, SELFPAY ==
--- NOTE | 2024-07-11 09:11 | RAD_ITS ---
PROCEDURE: ANKLE MIN 3 VIEWS 07/11/2024 REASON FOR EXAM: PAIN OVER LATERAL MALEOLUS TECHNIQUE: 3 views of the left ankle COMPARISON: None FINDINGS: Bones: Talar neck beak spur at the insertion of the Achilles tendon Joints: Normal alignment. Mortise appears intact. No effusion. Soft tissues: Soft tissues are unremarkable. Other: RAD/Ankle min 3 Views IMPRESSION: Talar neck beak. This is a normal finding. Spur at the insertion of the Achilles tendon. [facility]
== END | disposition home or self-care (01) ==
LOC: MTRAD 09:11
PROVIDERS: PCP Family Medicine; Referring Provider Family Medicine; Visit Provider Family Medicine
DX: M25.572 Pain in left ankle and joints of left foot (principal)
CPT/HCPCS: 73610

== ENCOUNTER → 2024-08-01 | Outpatient (CLI) | payer BC, SELFPAY ==
[2024-08-01 10:25] LABS: Hematocrit 45.8 % (40-54); Hemoglobin 14.6 g/dL (13.0-16.5); Mean Corp Hgb Conc 31.9 g/dL (32-36); Mean Corpuscular Hgb 27.7 pg (27.0-32.0); Mean Corpuscular Volume 86.7 fL (80-94); Mean Platelet Vol. 11.7 fl (6.2-12.0); Platelet Count 154 K/mm3 (150-450); RBC Distribution Width CV 14.4 % (11.6-14.6); Red Blood Count 5.28 M/mm3 (4.6-6.2); White Blood Count 3.5 K/mm3 (4.4-11.0)
[2024-08-01 11:13] LABS: ALB/GLOB Ratio 1.5 RATIO (0.9-2.4); AST(SGOT) 25 U/L (<=37); Alanine Aminotransfer ALT/SGPT 20 U/L (<=46); Albumin, Serum 4.2 g/dL (3.5-5.0); Alkaline Phosphatase 95 U/L (40-129); Anion Gap 10 (5-15); BUN 19 mg/dL (4-19); BUN/Creat Ratio 30.8 RATIO (10-20); Calcium,Total 8.9 mg/dL (7.6-11.0); Carbon Dioxide 23.1 mmol/L (21.0-32.0); Chloride 107 mmol/L (98-108); Cholesterol 199 mg/dL (<=200); Creatinine, Serum 0.62 mg/dL (0.70-1.20); EST Glomerular Filtration Rate 112 (>60); Globulin 2.8 g/dL (2.2-4.2); Glucose 96 mg/dL (70-99); High Density Lipoprotein 48 mg/dL; Low Density Lipoprotein Calc. 139 mg/dL; Potassium 3.9 mmol/L (3.3-5.1); Protein, Total 6.9 g/dL (5.9-8.4); Sodium Level 141 mmol/L (133-145); Total Bilirubin 0.34 mg/dL (0.00-1.30); Triglycerides 62 mg/dL; Very Low Density Lipoprotein 12 mg/dL (5-40); cholesterol:hdl ratio screen 4.16
[2024-08-01 11:19] LABS: Ferritin 379 ng/mL (37-417); PSA,Total - Annual Screen 0.66 ng/mL (0.02-4.00); Vitamin D,25 Hydroxy 51.7 ng/mL (30-100)
[2024-08-04 20:07] LABS: DHEA Sulfate 36.7 ug/dL (48.9-344.2); Zinc, Plasma or Serum 86 ug/dL (44-115)
== END | disposition home or self-care (01) ==
LOC: MFPLAB 09:18
PROVIDERS: PCP Family Medicine
DX: Z00.00 Encounter for general adult medical examination without abnormal findings (principal); Z12.5 Encounter for screening for malignant neoplasm of prostate
CPT/HCPCS: 36415; 80053; 80061; 82306; 82627; 82728; 84153; 84630; 85027; 82626; G0103

== ENCOUNTER → 2024-11-23 | Outpatient (CLI) | payer BC, SELFPAY ==
--- NOTE | 2024-11-23 09:55 | RAD_ITS ---
PROCEDURE: ELBOW MIN 3 VIEWS 11/23/2024 REASON FOR EXAM: ELBOW PAIN, RIGHT TECHNIQUE: ELBOW MIN 3 VIEWS Laterality: Right COMPARISON: None. RAD/Elbow min 3 Views IMPRESSION: No right elbow joint effusion is seen. A mild ulnar olecranon enthesophyte is seen. Overlying soft tissue swelling is noted posteriorly. Minimal degenerative changes of the right elbow joint are seen, without associa alexys significant joint narrowing. Satisfactory alignment is seen. No fracture site is evident. Reading Location: [facility]
[2024-11-23 12:55] LABS: Hematocrit 44.7 % (40-54); Hemoglobin 14.9 g/dL (13.0-16.5); Immature Granulocytes Count 0.010 X10^3/uL (0.0-0.0); Mean Corp Hgb Conc 33.3 g/dL (32-36); Mean Corpuscular Volume 85.8 fL (80-94); Mean Platelet Vol. 12.4 fl (6.2-12.0); NRBC Flagged by Analyzer 0 % (0-5); Platelet Count 151 K/mm3 (150-450); RBC Distribution Width CV 13.7 % (11.6-14.6); RBC Distribution Width SD 42.9 fl (35.1-43.9); Red Blood Count 5.21 M/mm3 (4.6-6.2); White Blood Count 6.7 K/mm3 (4.4-11.0)
[2024-11-23 13:42] LABS: Uric Acid 5.6 mg/dL (3.5-7.2)
== END | disposition home or self-care (01) ==
LOC: MTRAD 09:53
PROVIDERS: PCP Family Medicine; Referring Provider Family Medicine; Visit Provider Family Medicine
DX: M25.521 Pain in right elbow (principal)
CPT/HCPCS: 36415; 73080; 84550; 85025

== ENCOUNTER → 2025-01-04 | Outpatient (CLI) | payer BC, SELFPAY ==
[2025-01-04 15:14] LABS: Hematocrit 40.9 % (40-54); Hemoglobin 13.4 g/dL (13.0-16.5); Immature Granulocytes Count 0.010 X10^3/uL (0.0-0.0); Mean Corp Hgb Conc 32.8 g/dL (32-36); Mean Corpuscular Volume 86.7 fL (80-94); Mean Platelet Vol. 13.0 fl (6.2-12.0); NRBC Flagged by Analyzer 0 % (0-5); Platelet Count 127 K/mm3 (150-450); RBC Distribution Width CV 14.4 % (11.6-14.6); RBC Distribution Width SD 45.7 fl (35.1-43.9); Red Blood Count 4.72 M/mm3 (4.6-6.2); White Blood Count 5.3 K/mm3 (4.4-11.0)
[2025-01-04 15:18] LABS: CRP 28.90 mg/L (0.0-3.0)
== END | disposition home or self-care (01) ==
LOC: MFPLAB 12:01
PROVIDERS: PCP Family Medicine; Visit Provider Family Medicine
DX: M19.021 Primary osteoarthritis, right elbow (principal)
CPT/HCPCS: 36415; 85025; 86140